=== PATIENT | male | born 1990 | race Caucasian/White ===

== ENCOUNTER 2017-08-31 13:41 | Emergency (ER) | payer OTHER, MEDICAID ==
[2017-08-31] MEDS: LORAZEPAM 1 MG TAB PO (14:36)
== END 2017-08-31 15:03 | disposition home or self-care (01) ==
LOC: FTE 13:41
DX: F41.9 Anxiety disorder, unspecified (principal)
CPT/HCPCS: 99283; Z7502

== ENCOUNTER 2017-10-11 10:14 | Emergency (ER) | payer OTHER ==
[2017-10-11] MEDS: IBUPROFEN 600 MG TAB PO (13:08)
[2017-10-11] MEDS: AZITHROMYCIN 250 MG TAB PO (13:09)
[2017-10-11] MEDS: CEFTRIAXONE 1 GM INJ IM (13:09)
== END 2017-10-11 13:30 | disposition home or self-care (01) ==
LOC: FTE 10:14
DX: L60.0 Ingrowing nail (principal); N34.2 Other urethritis
CPT/HCPCS: 87591; 96372; 99284-25

== ENCOUNTER 2017-12-12 03:11 | Emergency (ER) | payer OTHER ==
[2017-12-12] MEDS: SOD CHLORIDE 0.9% 1,000 ML IV (03:50)
[2017-12-12] MEDS: LORAZEPAM 2 MG INJ IV (03:50)
[2017-12-12 05:05] LABS: ALANINE AMINOTRANSFERASE 25 IU/L (13-69); ALBUMIN 4.7 g/dl (3.3-4.9); ALKALINE PHOSPHATASE 79 IU/L (42-121); ANION GAP 18 (8-16); ASPARTATE AMINO TRANSFERASE 35 IU/L (15-46); BILIRUBIN,INDIRECT 0.8 mg/dl (0-1.1); BILIRUBIN,TOTAL 0.8 mg/dl (0.2-1.3); BLOOD UREA NITROGEN 25 mg/dl (7-20); CARBON DIOXIDE 28 mmol/L (21-31); CHLORIDE 104 mmol/L (97-110); CREATININE 1.03 mg/dl (0.61-1.24); GLUCOSE 105 mg/dl (70-220); POTASSIUM 3.6 mmol/L (3.5-5.1); SODIUM 146 mmol/L (135-144); TOTAL PROTEIN 8.6 g/dl (6.1-8.1)
[2017-12-12 05:10] LABS: ACETAMINOPHEN < 10.0 ug/ml (10.0-30.0); SALICYLATE < 1.0 mg/dl (5.0-30.0)
[2017-12-12 05:11] LABS: ETHANOL < 10.0 mg/dl
== END 2017-12-12 06:19 | disposition home or self-care (01) ==
LOC: E/R 03:11
DX: F15.10 Other stimulant abuse, uncomplicated (principal); R00.0 Tachycardia, unspecified
CPT/HCPCS: 36415; 80053; 80306; 96374; 99284-25

== ENCOUNTER 2017-12-12 12:45 | Emergency (ER) | payer SELFPAY, OTHER | END 2017-12-12 13:52 | disposition home or self-care (01) | LOC: E/R 12:45 | DX: F41.9 Anxiety disorder, unspecified (principal); F15.10 Other stimulant abuse, uncomplicated | CPT/HCPCS: 99283 ==

== ENCOUNTER 2017-12-13 20:55 | Emergency (ER) | payer OTHER ==
[2017-12-13] MEDS: LORAZEPAM 2 MG INJ IM (21:52)
== END 2017-12-13 23:35 | disposition home or self-care (01) ==
LOC: E/R 20:55
DX: F19.90 Other psychoactive substance use, unspecified, uncomplicated (principal)
CPT/HCPCS: 96372; 99284-25

== ENCOUNTER 2017-12-14 08:17 | Emergency (ER) | payer OTHER ==
[2017-12-14] MEDS: LORAZEPAM 1 MG TAB PO (08:37)
== END 2017-12-14 16:17 | disposition home or self-care (01) ==
LOC: E/R 08:17
DX: F15.10 Other stimulant abuse, uncomplicated (principal)
CPT/HCPCS: 99282; Z7502

== ENCOUNTER 2018-06-08 13:11 | Emergency (ER) | payer OTHER ==
[2018-06-08 14:28] LABS: ADD MAN DIFF? NO
[2018-06-08 14:32] LABS: BASOPHILS % 0.4 % (0.0-2.0); EOSINOPHILS # 0.2 10^3/ul (0.0-0.5); EOSINOPHILS % 1.6 % (0.0-7.0); HEMATOCRIT 41.3 % (42.0-52.0); HEMOGLOBIN 14.3 g/dl (14.0-18.0); LYMPHOCYTES # 2.8 10^3/ul (0.8-2.9); MEAN CORPUSCULAR HEMOGLOBIN 29.7 pg (29.0-33.0); MEAN CORPUSCULAR HGB CONC 34.6 g/dl (32.0-37.0); MEAN CORPUSCULAR VOLUME 85.9 fl (82.0-101.0); MEAN PLATELET VOLUME 10.1 fl (7.4-10.4); MONOCYTE # 1.3 10^3/ul (0.3-0.9); MONOCYTES % 12.9 % (0.0-11.0); NEUTROPHIL # 5.7 10^3/ul (1.6-7.5); NEUTROPHILS % 56.8 % (39.0-77.0); PLATELET COUNT 287 10^3/UL (140-415); RED BLOOD COUNT 4.81 10^6/ul (4.70-6.10); RED CELL DISTRIBUTION WIDTH 13.2 % (11.5-14.5)
[2018-06-08] MEDS: SOD CHLORIDE 0.9% 1,000 ML IV (14:40)
[2018-06-08] MEDS: morphine 4 MG/ML VIAL IV (14:40)
[2018-06-08 14:55] LABS: ALANINE AMINOTRANSFERASE 47 IU/L (13-69); ALBUMIN 4.6 g/dl (3.3-4.9); ALBUMIN/GLOBULIN RATIO 1.31; ALKALINE PHOSPHATASE 67 IU/L (42-121); ANION GAP 13 (5-13); ASPARTATE AMINO TRANSFERASE 65 IU/L (15-46); BILIRUBIN,INDIRECT 0.9 mg/dl (0-1.1); BILIRUBIN,TOTAL 0.9 mg/dl (0.2-1.3); BLOOD UREA NITROGEN 21 mg/dl (7-20); CALCIUM 9.4 mg/dl (8.4-10.2); CARBON DIOXIDE 25 mmol/L (21-31); CHLORIDE 101 mmol/L (97-110); CREATININE 0.89 mg/dl (0.61-1.24); Estimated GFR > 60 mL/min (>60); GLUCOSE 93 mg/dl (70-220); LIPASE 30 U/L (23-300); POTASSIUM 3.4 mmol/L (3.5-5.1); SODIUM 139 mmol/L (135-144); TOTAL PROTEIN 8.1 g/dl (6.1-8.1)
[2018-06-08] MEDS: SOD CHLORIDE 0.9% 100 ML (16:15)
[2018-06-08] MEDS: IOHEXOL 300MG/ML 150 ML BTL (16:15)
== END 2018-06-08 16:42 | disposition home or self-care (01) ==
LOC: E/R 13:11
DX: R10.84 Generalized abdominal pain (principal); I10 Essential (primary) hypertension; F17.210 Nicotine dependence, cigarettes, uncomplicated
CPT/HCPCS: 36415; 74177; 80053; 83605; 83690; 85025; 96374; 99285-25

== ENCOUNTER 2018-06-09 03:06 | Emergency (ER) | payer OTHER ==
[2018-06-09] MEDS: OLANZAPINE (ODT) 5 MG TAB ODT (03:28)
[2018-06-09 03:34] LABS: ADD MAN DIFF? NO
[2018-06-09 03:56] LABS: ANION GAP 12 (5-13); BLOOD UREA NITROGEN 16 mg/dl (7-20); CALCIUM 9.1 mg/dl (8.4-10.2); CARBON DIOXIDE 26 mmol/L (21-31); CHLORIDE 105 mmol/L (97-110); CREATININE 0.88 mg/dl (0.61-1.24); Estimated GFR > 60 mL/min (>60); GLUCOSE 99 mg/dl (70-220); POTASSIUM 3.2 mmol/L (3.5-5.1); SODIUM 143 mmol/L (135-144)
[2018-06-09 03:59] LABS: ETHANOL < 10.0 mg/dl
[2018-06-09 04:05] LABS: BASOPHILS % 0.3 % (0.0-2.0); EOSINOPHILS # 0.1 10^3/ul (0.0-0.5); EOSINOPHILS % 1.2 % (0.0-7.0); HEMATOCRIT 40.8 % (42.0-52.0); HEMOGLOBIN 13.9 g/dl (14.0-18.0); LYMPHOCYTES # 2.4 10^3/ul (0.8-2.9); LYMPHOCYTES % 25.6 % (15.0-51.0); MEAN CORPUSCULAR HEMOGLOBIN 29.6 pg (29.0-33.0); MEAN CORPUSCULAR HGB CONC 34.1 g/dl (32.0-37.0); MEAN CORPUSCULAR VOLUME 86.8 fl (82.0-101.0); MEAN PLATELET VOLUME 9.5 fl (7.4-10.4); MONOCYTES % 11.2 % (0.0-11.0); NEUTROPHIL # 5.7 10^3/ul (1.6-7.5); NEUTROPHILS % 61.5 % (39.0-77.0); PLATELET COUNT 265 10^3/UL (140-415); RED CELL DISTRIBUTION WIDTH 13.1 % (11.5-14.5)
[2018-06-09 04:05] LABS: WHITE BLOOD COUNT 9.2 10^3/ul (4.8-10.8)
[2018-06-10] MEDS ORDERED: OLANZAPINE 5 MG TAB PO (09:00)
== END 2018-06-09 11:28 ==
LOC: E/R 03:06
DX: F23 Brief psychotic disorder (principal); R40.2252 Coma scale, best verbal response, oriented, at arrival to emergency department; R40.2142 Coma scale, eyes open, spontaneous, at arrival to emergency department; R40.2362 Coma scale, best motor response, obeys commands, at arrival to emergency department; I10 Essential (primary) hypertension; F17.210 Nicotine dependence, cigarettes, uncomplicated; Z86.59 Personal history of other mental and behavioral disorders
CPT/HCPCS: 36415; 71045; 80048; 80307; 85025; 99285-25

== ENCOUNTER 2018-07-09 00:30 | Emergency (ER) | payer OTHER ==
[2018-07-09] MEDS: LORAZEPAM 2 MG INJ IV (02:24)
[2018-07-09] MEDS: KETOROLAC 15 MG INJ IV (02:24)
[2018-07-09] MEDS: ONDANSETRON 4 MG INJ IV (02:24)
[2018-07-09] MEDS: SOD CHLORIDE 0.9% 1,000 ML IV (02:25)
[2018-07-09 02:39] LABS: WHITE BLOOD COUNT 9.7 10^3/ul (4.8-10.8)
[2018-07-09 02:39] LABS: ADD MAN DIFF? NO; BASOPHILS % 0.3 % (0.0-2.0); EOSINOPHILS # 0.1 10^3/ul (0.0-0.5); EOSINOPHILS % 0.6 % (0.0-7.0); HEMATOCRIT 41.9 % (42.0-52.0); HEMOGLOBIN 14.4 g/dl (14.0-18.0); LYMPHOCYTES # 2.3 10^3/ul (0.8-2.9); LYMPHOCYTES % 23.9 % (15.0-51.0); MEAN CORPUSCULAR HEMOGLOBIN 29.5 pg (29.0-33.0); MEAN CORPUSCULAR HGB CONC 34.4 g/dl (32.0-37.0); MEAN CORPUSCULAR VOLUME 85.9 fl (82.0-101.0); MEAN PLATELET VOLUME 9.1 fl (7.4-10.4); MONOCYTE # 1.1 10^3/ul (0.3-0.9); MONOCYTES % 11.4 % (0.0-11.0); NEUTROPHIL # 6.1 10^3/ul (1.6-7.5); NEUTROPHILS % 63.4 % (39.0-77.0); PLATELET COUNT 251 10^3/UL (140-415); RED BLOOD COUNT 4.88 10^6/ul (4.70-6.10)
[2018-07-09 02:56] LABS: ALANINE AMINOTRANSFERASE 22 IU/L (13-69); ALBUMIN 4.5 g/dl (3.3-4.9); ALKALINE PHOSPHATASE 63 IU/L (42-121); ANION GAP 13 (5-13); ASPARTATE AMINO TRANSFERASE 19 IU/L (15-46); BILIRUBIN,INDIRECT 0.6 mg/dl (0-1.1); BILIRUBIN,TOTAL 0.6 mg/dl (0.2-1.3); BLOOD UREA NITROGEN 21 mg/dl (7-20); CALCIUM 9.5 mg/dl (8.4-10.2); CARBON DIOXIDE 25 mmol/L (21-31); CHLORIDE 105 mmol/L (97-110); CREATININE 0.88 mg/dl (0.61-1.24); Estimated GFR > 60 mL/min (>60); GLUCOSE 101 mg/dl (70-220); LIPASE 25 U/L (23-300); POTASSIUM 3.9 mmol/L (3.5-5.1); SODIUM 143 mmol/L (135-144); TOTAL PROTEIN 7.7 g/dl (6.1-8.1)
[2018-07-09 02:57] LABS: ETHANOL < 10.0 mg/dl (0-0)
[2018-07-09 03:07] LABS: TROPONIN-I < 0.012 ng/ml (0.000-0.120)
== END 2018-07-09 08:00 | disposition home or self-care (01) ==
LOC: E/R 00:30
DX: F41.9 Anxiety disorder, unspecified (principal); R40.2252 Coma scale, best verbal response, oriented, at arrival to emergency department; R40.2362 Coma scale, best motor response, obeys commands, at arrival to emergency department; R40.2142 Coma scale, eyes open, spontaneous, at arrival to emergency department; F15.10 Other stimulant abuse, uncomplicated; F11.10 Opioid abuse, uncomplicated; I10 Essential (primary) hypertension; Z87.891 Personal history of nicotine dependence
CPT/HCPCS: 36415; 71045; 80053; 80307; 83690; 84484; 85025; 93005; 96374; 96375; 99285-25

== ENCOUNTER 2018-08-12 17:57 | Emergency (ER) | payer OTHER ==
[2018-08-12 21:17] LABS: ADD MAN DIFF? NO
[2018-08-12 21:18] LABS: BASOPHILS % 0.5 % (0.0-2.0); EOSINOPHILS # 0.1 10^3/ul (0.0-0.5); EOSINOPHILS % 1.7 % (0.0-7.0); HEMATOCRIT 38.5 % (42.0-52.0); HEMOGLOBIN 13.2 g/dl (14.0-18.0); LYMPHOCYTES % 31.9 % (15.0-51.0); MEAN CORPUSCULAR HEMOGLOBIN 29.7 pg (29.0-33.0); MEAN CORPUSCULAR HGB CONC 34.3 g/dl (32.0-37.0); MEAN CORPUSCULAR VOLUME 86.5 fl (82.0-101.0); MEAN PLATELET VOLUME 8.9 fl (7.4-10.4); MONOCYTE # 0.8 10^3/ul (0.3-0.9); NEUTROPHIL # 3.3 10^3/ul (1.6-7.5); NEUTROPHILS % 52.6 % (39.0-77.0); PLATELET COUNT 222 10^3/UL (140-415); RED BLOOD COUNT 4.45 10^6/ul (4.70-6.10); RED CELL DISTRIBUTION WIDTH 12.9 % (11.5-14.5)
[2018-08-12 21:18] LABS: WHITE BLOOD COUNT 6.3 10^3/ul (4.8-10.8)
[2018-08-12 21:35] LABS: ALANINE AMINOTRANSFERASE 17 IU/L (13-69); ALBUMIN/GLOBULIN RATIO 1.42; ALKALINE PHOSPHATASE 52 IU/L (42-121); ANION GAP 8 (5-13); ASPARTATE AMINO TRANSFERASE 16 IU/L (15-46); BILIRUBIN,INDIRECT 0.1 mg/dl (0-1.1); BILIRUBIN,TOTAL 0.1 mg/dl (0.2-1.3); BLOOD UREA NITROGEN 26 mg/dl (7-20); CALCIUM 9.3 mg/dl (8.4-10.2); CARBON DIOXIDE 26 mmol/L (21-31); CHLORIDE 103 mmol/L (97-110); CREATININE 0.98 mg/dl (0.61-1.24); Estimated GFR > 60 mL/min (>60); GLUCOSE 119 mg/dl (70-220); POTASSIUM 4.2 mmol/L (3.5-5.1); SODIUM 137 mmol/L (135-144); TOTAL PROTEIN 6.8 g/dl (6.1-8.1)
[2018-08-12 22:00] LABS: ETHANOL < 10.0 mg/dl (0-0)
[2018-08-13 00:02] LABS: BARBITURATES Negative (NEGATIVE); BENZODIAZEPINES Negative (NEGATIVE); CANNABINOIDS Negative (NEGATIVE); COCAINE Negative (NEGATIVE); OPIATES Positive (NEGATIVE)
[2018-08-13 00:13] LABS: AMPHETAMINE/METHAMPHETAMINE POSITIVE (NEGATIVE)
== END 2018-08-13 09:00 ==
LOC: E/R 08-13 09:00 → FTE 17:57
DX: R45.851 Suicidal ideations (principal); R40.2142 Coma scale, eyes open, spontaneous, at arrival to emergency department; R40.2362 Coma scale, best motor response, obeys commands, at arrival to emergency department; R40.2252 Coma scale, best verbal response, oriented, at arrival to emergency department; I10 Essential (primary) hypertension; F17.210 Nicotine dependence, cigarettes, uncomplicated
CPT/HCPCS: 36415; 80053; 80307; 85025; 99285-25

== ENCOUNTER 2018-08-31 18:11 | Emergency (ER) | payer OTHER | END 2018-08-31 23:43 | disposition home or self-care (01) | LOC: FTE 18:11 | DX: Z00.00 Encounter for general adult medical examination without abnormal findings (principal); I10 Essential (primary) hypertension; Z87.891 Personal history of nicotine dependence | CPT/HCPCS: 99282; Z7502 ==

== ENCOUNTER 2018-09-01 11:55 | Emergency (ER) | payer SELFPAY, OTHER | END 2018-09-01 15:38 | disposition left against medical advice (07) | LOC: E/R 15:38 | DX: Z53.21 Procedure and treatment not carried out due to patient leaving prior to being seen by health care provider (principal) ==

== ENCOUNTER 2018-09-01 15:45 | Emergency (ER) | payer OTHER ==
[2018-09-01] MEDS: LIDOCAINE 1% (MPF) 5 ML VIAL INFIL (16:56)
[2018-09-01] MEDS: AZITHROMYCIN 250 MG TAB PO (16:56)
[2018-09-01] MEDS: CEFTRIAXONE 250 MG INJ IM (16:56)
[2018-09-01 17:56] LABS: HEPATITIS B SURFACE ANTIGEN NEGATIVE (NEGATIVE)
[2018-09-01 18:08] LABS: HIV 1&2 ANTIBODY NEGATIVE (NEGATIVE)
[2018-09-01 18:13] LABS: HEPATITIS B SURFACE ANTIBODY POSITIVE (NEGATIVE)
[2018-09-01 22:17] LABS: RAPID PLASMA REAGIN NONREACTIVE (NR)
== END 2018-09-01 18:49 | disposition home or self-care (01) ==
LOC: FTE 15:45
DX: R36.9 Urethral discharge, unspecified (principal); I10 Essential (primary) hypertension; F17.210 Nicotine dependence, cigarettes, uncomplicated
CPT/HCPCS: 86592; 86703; 86706; 87340; 87591; 96372; 99284-25

== ENCOUNTER 2018-09-06 07:50 | Emergency (ER) | payer OTHER ==
[2018-09-06 08:57] LABS: ADD UMIC NO; UR ASCORBIC ACID NEGATIVE (NEGATIVE); UR BILIRUBIN (Dip) NEGATIVE (NEGATIVE); UR BLOOD (Dip) NEGATIVE (NEGATIVE); UR CLARITY CLEAR (CLEAR); UR COLOR YELLOW (YELLOW); UR GLUCOSE (Dip) NEGATIVE (NEGATIVE); UR KETONES (Dip) NEGATIVE (NEGATIVE); UR LEUKOCYTE ESTERASE (Dip) NEGATIVE Leu/ul (NEGATIVE); UR NITRITE (Dip) NEGATIVE (NEGATIVE); UR SPECIFIC GRAVITY (Dip) 1.023 (1.003-1.030); UR TOTAL PROTEIN (Dip) NEGATIVE (NEGATIVE); UR UROBILINOGEN (Dip) NEGATIVE (NEGATIVE)
== END 2018-09-06 08:45 | disposition home or self-care (01) ==
LOC: FTE 07:50
DX: R30.0 Dysuria (principal); I10 Essential (primary) hypertension; F17.210 Nicotine dependence, cigarettes, uncomplicated
CPT/HCPCS: 81003; 87086; 99283

== ENCOUNTER 2018-09-09 18:50 | Emergency (ER) | payer OTHER ==
[2018-09-09] MEDS: LORAZEPAM 2 MG INJ IM (20:03)
== END 2018-09-09 20:30 | disposition home or self-care (01) ==
LOC: E/R 18:50
DX: F41.9 Anxiety disorder, unspecified (principal); F19.10 Other psychoactive substance abuse, uncomplicated; I10 Essential (primary) hypertension; F17.210 Nicotine dependence, cigarettes, uncomplicated; Z76.5 Malingerer [conscious simulation]
CPT/HCPCS: 96372; 99284-25; J2060

== ENCOUNTER 2018-10-02 11:13 | Emergency (ER) | payer OTHER | END 2018-10-02 12:25 | disposition home or self-care (01) | LOC: E/R 11:13 | DX: F15.10 Other stimulant abuse, uncomplicated (principal); I10 Essential (primary) hypertension; F17.210 Nicotine dependence, cigarettes, uncomplicated; Z76.5 Malingerer [conscious simulation] | CPT/HCPCS: 99283; Z7502 ==

== ENCOUNTER 2018-12-28 05:36 | Emergency (ER) | payer OTHER ==
[2018-12-28] MEDS: LORAZEPAM 1 MG TAB PO (06:40)
== END 2018-12-28 06:59 | disposition home or self-care (01) ==
LOC: E/R 05:36
DX: F15.10 Other stimulant abuse, uncomplicated (principal); F41.9 Anxiety disorder, unspecified; F17.210 Nicotine dependence, cigarettes, uncomplicated; I10 Essential (primary) hypertension
CPT/HCPCS: 99283; Z7502

== ENCOUNTER 2019-01-25 15:05 | Emergency (ER) | payer OTHER | END 2019-01-25 18:08 | disposition home or self-care (01) | LOC: E/R 15:05 | DX: M79.601 Pain in right arm (principal); I10 Essential (primary) hypertension; F17.210 Nicotine dependence, cigarettes, uncomplicated | CPT/HCPCS: 99282; Z7502 ==

== ENCOUNTER 2019-01-25 22:34 | Emergency (ER) | payer OTHER ==
[2019-01-26] MEDS: LORAZEPAM 2 MG INJ IM (01:51)
[2019-01-26] MEDS: KETOROLAC 15 MG INJ IM (01:51)
[2019-01-26] MEDS: DIPHENHYDRAMINE 25 MG CAP PO (01:51)
[2019-01-26] MEDS: METOCLOPRAMIDE 10 MG TAB PO (01:54)
== END 2019-01-26 03:25 | disposition home or self-care (01) ==
LOC: E/R 22:34
DX: S02.92XA Unspecified fracture of facial bones, initial encounter for closed fracture (principal); F15.10 Other stimulant abuse, uncomplicated; I10 Essential (primary) hypertension; F17.210 Nicotine dependence, cigarettes, uncomplicated; R51 Headache; W19.XXXA Unspecified fall, initial encounter; Y92.9 Unspecified place or not applicable
CPT/HCPCS: 70450; 96372; 99285-25

== ENCOUNTER 2019-01-26 12:07 | Emergency (ER) | payer OTHER ==
[2019-01-26] MEDS: ACETAMINOPHEN 325 MG TAB PO (13:32)
== END 2019-01-26 13:45 | disposition home or self-care (01) ==
LOC: E/R 12:07
DX: R51 Headache (principal); I10 Essential (primary) hypertension; F17.210 Nicotine dependence, cigarettes, uncomplicated; R40.2142 Coma scale, eyes open, spontaneous, at arrival to emergency department; R40.2362 Coma scale, best motor response, obeys commands, at arrival to emergency department; R40.2252 Coma scale, best verbal response, oriented, at arrival to emergency department
CPT/HCPCS: 99282; Z7502

== ENCOUNTER 2019-01-28 11:09 | Emergency (ER) | payer OTHER ==
[2019-01-28] MEDS: LORAZEPAM 1 MG TAB PO (12:57)
== END 2019-01-28 18:00 | disposition home or self-care (01) ==
LOC: E/R 11:09
DX: F41.9 Anxiety disorder, unspecified (principal); I10 Essential (primary) hypertension; F17.210 Nicotine dependence, cigarettes, uncomplicated; F15.10 Other stimulant abuse, uncomplicated; Z86.59 Personal history of other mental and behavioral disorders
CPT/HCPCS: 99283; Z7502

== ENCOUNTER 2019-02-11 17:35 | Emergency (ER) | payer OTHER | END 2019-02-11 20:10 | disposition home or self-care (01) | LOC: E/R 17:35 | DX: R06.02 Shortness of breath (principal); I10 Essential (primary) hypertension; F17.210 Nicotine dependence, cigarettes, uncomplicated; Z72.89 Other problems related to lifestyle | CPT/HCPCS: 99282; Z7502 ==

== ENCOUNTER 2019-03-08 15:57 | Emergency (ER) | payer OTHER ==
[2019-03-08] MEDS: IBUPROFEN 600 MG TAB PO (17:19)
== END 2019-03-08 17:36 | disposition home or self-care (01) ==
LOC: E/R 15:57
DX: I10 Essential (primary) hypertension (principal); Z87.891 Personal history of nicotine dependence
CPT/HCPCS: 71045; 93005; 99284-25

== ENCOUNTER 2019-04-06 11:42 | Emergency (ER) | payer OTHER ==
[2019-04-06] MEDS: LORAZEPAM 1 MG TAB PO (12:37)
[2019-04-06 13:21] LABS: ADD MAN DIFF? NO
[2019-04-06 13:27] LABS: ABNORMAL IP MESSAGE 1; BASOPHIL # 0.1 10^3/ul (0.0-0.1); BASOPHILS % 0.3 % (0.0-2.0); HEMATOCRIT 43.8 % (42.0-52.0); HEMOGLOBIN 14.6 g/dl (14.0-18.0); LYMPHOCYTES # 1.9 10^3/ul (0.8-2.9); LYMPHOCYTES % 7.6 % (15.0-51.0); MEAN CORPUSCULAR HEMOGLOBIN 29.2 pg (29.0-33.0); MEAN CORPUSCULAR HGB CONC 33.3 g/dl (32.0-37.0); MEAN CORPUSCULAR VOLUME 87.6 fl (82.0-101.0); MEAN PLATELET VOLUME 9.3 fl (7.4-10.4); MONOCYTE # 3.1 10^3/ul (0.3-0.9); MONOCYTES % 12.2 % (0.0-11.0); NEUTROPHILS % 79.4 % (39.0-77.0); PLATELET COUNT 298 10^3/UL (140-415); POSITIVE DIFF @See below; RED CELL DISTRIBUTION WIDTH 13.3 % (11.5-14.5)
[2019-04-06 13:27] LABS: WHITE BLOOD COUNT 25.2 10^3/ul (4.8-10.8)
[2019-04-06 13:44] LABS: ALANINE AMINOTRANSFERASE 45 IU/L (13-69); ALBUMIN 5.2 g/dl (3.3-4.9); ALBUMIN/GLOBULIN RATIO 1.36; ALKALINE PHOSPHATASE 53 IU/L (42-121); ANION GAP 15 (5-13); ASPARTATE AMINO TRANSFERASE 63 IU/L (15-46); BILIRUBIN,INDIRECT 0.6 mg/dl (0-1.1); BILIRUBIN,TOTAL 0.6 mg/dl (0.2-1.3); BLOOD UREA NITROGEN 29 mg/dl (7-20); CALCIUM 10.4 mg/dl (8.4-10.2); CARBON DIOXIDE 21 mmol/L (21-31); CHLORIDE 108 mmol/L (97-110); CREATININE 1.21 mg/dl (0.61-1.24); Estimated GFR > 60 mL/min (>60); GLUCOSE 149 mg/dl (70-220); SODIUM 144 mmol/L (135-144)
[2019-04-06 13:45] LABS: ACETAMINOPHEN < 10.0 ug/ml (10.0-30.0); ETHANOL < 10.0 mg/dl (0-0); SALICYLATE < 1.0 mg/dl (5.0-30.0)
[2019-04-06] MEDS: OLANZAPINE (ODT) 5 MG TAB ODT ×2 (13:47→22:46)
[2019-04-06 18:21] LABS: ADD UMIC YES; UR ASCORBIC ACID NEGATIVE (NEGATIVE); UR BILIRUBIN (Dip) NEGATIVE (NEGATIVE); UR BLOOD (Dip) 2+ mg/dL (NEGATIVE); UR CLARITY SLIGHTLY CLOUDY (CLEAR); UR COLOR YELLOW (YELLOW); UR GLUCOSE (Dip) NEGATIVE (NEGATIVE); UR KETONES (Dip) TRACE mg/dL (NEGATIVE); UR LEUKOCYTE ESTERASE (Dip) NEGATIVE Leu/ul (NEGATIVE); UR MUCUS FEW /HPF (NONE SEEN); UR NITRITE (Dip) NEGATIVE (NEGATIVE); UR RBC 3 /HPF (0-5); UR TOTAL PROTEIN (Dip) 1+ mg/dl (NEGATIVE); UR UROBILINOGEN (Dip) NEGATIVE (NEGATIVE); UR WBC 3 /HPF (0-5)
[2019-04-06 18:36] LABS: BARBITURATES Negative (NEGATIVE); BENZODIAZEPINES Negative (NEGATIVE); CANNABINOIDS Negative (NEGATIVE); COCAINE Negative (NEGATIVE); OPIATES Negative (NEGATIVE)
[2019-04-06 18:39] LABS: AMPHETAMINE/METHAMPHETAMINE POSITIVE (NEGATIVE)
[2019-04-07 06:28] LABS: ADD MAN DIFF? NO
[2019-04-07 06:30] LABS: BASOPHIL # 0.1 10^3/ul (0.0-0.1); BASOPHILS % 0.4 % (0.0-2.0); EOSINOPHILS # 0.3 10^3/ul (0.0-0.5); EOSINOPHILS % 2.1 % (0.0-7.0); HEMATOCRIT 39.4 % (42.0-52.0); HEMOGLOBIN 13.4 g/dl (14.0-18.0); LYMPHOCYTES # 2.5 10^3/ul (0.8-2.9); LYMPHOCYTES % 21.1 % (15.0-51.0); MEAN CORPUSCULAR HEMOGLOBIN 30.2 pg (29.0-33.0); MEAN CORPUSCULAR VOLUME 88.7 fl (82.0-101.0); MEAN PLATELET VOLUME 9.4 fl (7.4-10.4); MONOCYTE # 1.4 10^3/ul (0.3-0.9); NEUTROPHIL # 7.6 10^3/ul (1.6-7.5); NEUTROPHILS % 64.1 % (39.0-77.0); PLATELET COUNT 217 10^3/UL (140-415); RED BLOOD COUNT 4.44 10^6/ul (4.70-6.10); RED CELL DISTRIBUTION WIDTH 12.9 % (11.5-14.5)
[2019-04-07 06:30] LABS: WHITE BLOOD COUNT 11.8 10^3/ul (4.8-10.8)
== END 2019-04-07 15:34 ==
LOC: E/R 04-07 15:34
DX: F15.10 Other stimulant abuse, uncomplicated (principal); R45.851 Suicidal ideations; I10 Essential (primary) hypertension; F17.210 Nicotine dependence, cigarettes, uncomplicated
CPT/HCPCS: 71045; 80053; 80307; 81001; 85025; 93005; 99285-25

== ENCOUNTER 2019-04-29 19:30 | Emergency (ER) | payer OTHER ==
[2019-04-29] MEDS: LORAZEPAM 1 MG TAB PO (21:04)
== END 2019-04-30 04:13 | disposition home or self-care (01) ==
LOC: E/R 04-30 04:13
DX: F15.10 Other stimulant abuse, uncomplicated (principal); I10 Essential (primary) hypertension; F17.210 Nicotine dependence, cigarettes, uncomplicated
CPT/HCPCS: 93005; 99283-25; Z7502